=== PATIENT | male | born 1930 | race Caucasian/White ===

== ENCOUNTER 2020-06-30 13:26 | Day surgery (SDC) | payer MEDICARE, OTHER ==
[2020-06-30] MEDS ORDERED: Xylocaine 1% Vial 30 ML PF IJ ONE (13:27)
[2020-06-30] MEDS ORDERED: Depo-Medrol 40 MG/ML IM ONE (13:27)
[2020-06-30] MEDS ORDERED: BUPIVACAINE 0.5% VIAL IJ ONE (13:27)
--- NOTE | 2020-06-30 16:45 | XRAY ---
23 seconds of fluoroscopy was used in surgery for a right SI joint injection.
--- NOTE | 2020-06-30 16:55 | XRAY ---
Indication: Right SI joint injection. Intraoperative fluoroscopy provided for 23 seconds. 2 digital spot images submitted for interpretation demonstrates posterior needle tip projecting over the inferior right SI joint. Correlate with intraoperative findings/report. 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
== END 2020-06-30 15:59 | disposition home or self-care (01) ==
LOC: SDC-PAIN 13:26
PROVIDERS: ATTEND Psychiatry & Neurology Pain Medicine
DX: M46.1 Sacroiliitis, not elsewhere classified (principal); I10 Essential (primary) hypertension; E11.9 Type 2 diabetes mellitus without complications; G62.9 Polyneuropathy, unspecified; I25.10 Atherosclerotic heart disease of native coronary artery without angina pectoris; Z79.899 Other long term (current) drug therapy
CPT/HCPCS: 27096; 72020; 77002; G0260; J1030; J2001